=== PATIENT | female | born 2000 | race Caucasian/White ===

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

== ENCOUNTER 2023-05-06 16:31 | Emergency (ER) | payer MEDICAID ==
[~2023-05-06] VITALS: Ht 157.5 cm; Wt 49.9 kg
[2023-05-06 18:46] VITALS: BP 133/86; PULSE 90; RESP 18
[2023-05-06] MEDS ORDERED: IBUPROFEN 600 MG TABLET PO ONE (20:00)
[2023-05-06 20:39] LABS: RAPID GROUP A STREP negative (NEGATIVE)
[2023-05-06 20:41] LABS: INFLUENZA TYPE A Negative For Type A (NEGATIVE); INFLUENZA TYPE B Negative For Type B (NEGATIVE)
[2023-05-06 20:42] LABS: COVID19 (SARS ANTIGEN RAPID) PRESUMPTIVE NEGATIVE (NEGATIVE)
[2023-05-06] MEDS ORDERED: ACETAMINOPHEN 500 MG TABLET PO ONE (21:00)
[2023-05-06] MEDS ORDERED: AMOX500T2 PO (21:08)
[2023-05-06] MEDS ORDERED: GUAIF10 PO (21:08)
[2023-05-06] MEDS ORDERED: ACET-66 PO (21:08)
== END 2023-05-06 21:30 | disposition home or self-care (01) ==
LOC: EDH 16:31
DX: O99.512 Diseases of the respiratory system complicating pregnancy, second trimester (principal); J02.9 Acute pharyngitis, unspecified; F41.9 Anxiety disorder, unspecified; F32.A Depression, unspecified; F17.210 Nicotine dependence, cigarettes, uncomplicated; Z59.00 Homelessness unspecified; Z59.7 Insufficient social insurance and welfare support; Z3A.15 15 weeks gestation of pregnancy; Z20.822 Contact with and (suspected) exposure to COVID-19
CPT/HCPCS: 87426; 87804; 87880

== ENCOUNTER 2023-06-09 11:21 | Emergency (ER) | payer MEDICAID ==
[~2023-06-09] VITALS: Ht 162.6 cm; Wt 72.6 kg
[~2023-06-09 11:21] MED LIST: ACET-66 PO; AMOX500T2 PO; GUAIF10 PO
[2023-06-09 11:42] VITALS: BP 114/80; PULSE 84; RESP 17
[2023-06-09 12:13] LABS: RAPID GROUP A STREP negative (NEGATIVE)
[2023-06-09 12:19] LABS: SARS-CoV-2, RNA, NAAT POSITIVE SARS CoV-2 (NEGATIVE)
[2023-06-09 12:23] LABS: INFLUENZA TYPE A Negative For Type A (NEGATIVE); INFLUENZA TYPE B Negative For Type B (NEGATIVE)
== END 2023-06-09 13:41 | disposition home or self-care (01) ==
LOC: EDH 11:21
DX: O98.511 Other viral diseases complicating pregnancy, first trimester (principal); U07.1 COVID-19; O26.891 Other specified pregnancy related conditions, first trimester; F41.9 Anxiety disorder, unspecified; F32.A Depression, unspecified; Z3A.01 Less than 8 weeks gestation of pregnancy; Z90.49 Acquired absence of other specified parts of digestive tract
CPT/HCPCS: 87635; 87804; 87880